=== PATIENT | male | born 1980 ===

== ENCOUNTER 2018-03-24 20:48 | Emergency (ER) | payer OTHER ==
[2018-03-24] MEDS ORDERED: Oxycodone/Acetaminophen 5/325 mg Tab PO STA (21:18)
[2018-03-24] MEDS ORDERED: Oxycodone/Acetaminophen 5/325 mg Tab ONE (21:29)
--- NOTE | 2018-03-24 21:48 | ED PDOC ---
HPI: CCC, URI, Sore Throat Time Seen by Provider: 03/24/18 21:05 Chief Complaint (Nursing): ENT Problem Chief Complaint (Provider): ENT Problem History Per: Patient History/Exam Limitations: no limitations Location Of Pain: Ear(s) Associated Symptoms: denies: Fever Ear Symptoms: Right: Ear Pain Additional Complaint(s): Patient is a 37 y/o male with no significant past medical history who presents to the ED complaining of right ear pain radiating down his throat, onset earlier today. Patient denies any fever, trauma, headache, hearing changes, recent swimming, or history of diabetes. Patient states he has not used any medications to manage pain. Past Medical History Reviewed: Historical Data, Nursing Documentation, Vital Signs Vital Signs: Last Vital Signs Temp 98.1 F 03/24/18 22:09 Pulse 88 03/24/18 22:09 Resp 18 03/24/18 22:09 BP 130/79 03/24/18 22:09 Pulse Ox 97 03/24/18 22:31 - Medical History PMH: Denies: Diabetes - Family History Family History: States: Unknown Family Hx - Home Medications Home Medications: Ambulatory Orders Medication Instructions Recorded Naproxen [Naprosyn] 500 mg PO BID PRN #14 tab 03/24/18 - Allergies Allergies/Adverse Reactions: Allergies Allergy/AdvReac Type Severity Reaction Status Date / Time No Known Allergies Allergy Verified 03/24/18 20:59 Review of Systems ROS Statement: Except As Marked, All Systems Reviewed And Found Negative Constitutional: Negative for: Fever ENT: Positive for: Ear Pain (right), Ear Discharge (pus). Negative for: Other ( hearing changes) Neurological: Negative for: Headache Physical Exam - Reviewed Nursing Documentation Reviewed: Yes Vital Signs Reviewed: Yes - Physical Exam Appears: Positive for: In Acute Distress (mild painful ) Head Exam: Positive for: ATRAUMATIC, NORMOCEPHALIC Skin: Positive for: Normal Color, Warm, Dry Eye Exam: Positive for: EOMI, Normal appearance, PERRL ENT: Positive for: TM Is/Are (right TM is unable to visualize; left TM is non erythematous and non bulging), Other (no mastoid tenderness bilaterally; no trismus; airway patent; pain with pulling right tragus). Negative for: Normal ENT Inspection (right ear canal - mildly erythematous and edematous; left ear canal - normal), Pharyngeal Erythema, Tonsillar Exudate, Tonsillar Swelling Lymphatic: Positive for: Adenopathy (R sided preauricular lymphadenopathy) Neurologic/Psych: Positive for: Alert, Oriented. Negative for: Motor/Sensory Deficits - ECG O2 Sat by Pulse Oximetry: 97 (RA) Pulse Ox Interpretation: Normal Medical Decision Making Medical Decision Making: Time: 21:18 Initial Impression: Right ear pain Initial Plan: --Percocet 5/325 mg PO --Toradol 30 mg IM --Cortisporin Otic Susp 4 drop AD --Given bottle of cortisporin from ED along with instructions on use Scribe Attestation: Documented by Norbert Dudley, acting as a scribe for Teo Arredondo PA-C Provider Scribe Attestation: All medical record entries made by the Scribe were at my direction and personally dictated by me. I have reviewed the chart and agree that the record accurately reflects my personal performance of the history, physical exam, medical decision making, and the department course for this patient. I have also personally directed, reviewed, and agree with the discharge instructions and disposition. Disposition - Clinical Impression Clinical Impression: Otitis externa - Patient ED Disposition Is Patient to be Admitted: No - Disposition Referrals: [facility] [Outside] Disposition: Routine/Home Disposition Time: 21:45 Condition: STABLE Additional Instructions: CORTISPORIN OTIC SUSPENSION: FOUR DROPS IN AFFECTED EAR THREE TIMES A DAY FOR 7 DAYS. CHAZ FOLEY, thank you for letting us take care of you today. Your provider was Scott Armstrong MD and you were treated for RT EAR PAIN, NECK PAIN. The emergency medical care you received today was directed at your acute symptoms. If you were prescribed any medication, please fill it and take as directed. It may take several days for your symptoms to resolve. Return to the Emergency Department if your symptoms worsen, do not improve, or if you have any other problems. Please contact your doctor or call one of the physicians/clinics you have been referred to that are listed on the Patient Visit Information form that is included in your discharge packet. Bring any paperwork you were given at discharge with you along with any medications you are taking to your follow up visit. Our treatment cannot replace ongoing medical care by a primary care provider outside of the emergency department. Thank you for allowing the [facility] team to be part of your care today. If you had an X-Ray or CT scan: A Radiologist will review the ED reading if any change in treatment is needed we will contact you. If you had a blood, urine, or wound culture: It will take several days for the results, if any change in treatment is needed we will contact you. If you had an STI test: It will take 48 hours for the results. Please call after 1 week if you have not heard back. Prescriptions: Naproxen [Naprosyn] 500 mg PO BID PRN #14 tab PRN Reason: Pain Instructions: Outer Ear Infection (DC) Forms: [employer] (Danish) Print Language: SUDANESE
[2018-03-24 22:10] VITALS: BP 130/79; PULSE 88; RESP 18; TEMP 98.1
[2018-03-24 22:31] VITALS: O2SAT 97
== END 2018-03-24 22:09 | disposition home or self-care (01) ==
LOC: H.ER 20:48
DX: H60.91 Unspecified otitis externa, right ear (principal)
CPT/HCPCS: 96372; 99282; J1885